=== PATIENT | female | born 1965 | race African-American/Black ===

== ENCOUNTER 2016-12-03 12:47 | Inpatient (IN) | payer OTHER ==
[~2016-12-03] VITALS: Ht 165.1 cm; Wt 83.0 kg
[~2016-12-03 12:47] MED LIST: ABILIFY10 MG PO; ABILIFY15 MG PO; ACTOS15 MG PO; ADULT LOW DOSE81 MG PO; ALTOPREV20 MG PO; AMITRIPTYLINE H25 M2 PO; AMITRIPTYLINE H25 M4; B12INJ PO; BARIATRIC ADVANTAGE; BENTYL 20 MG TA20 M1 PO; BIOTIN2500 MCG PO; CALCIUM AND MA1 EACH PO; CINNAMON; CLONAZEPAM 0.50.5 M1 PO; CLONAZEPAM PO; CLONIDINE PO; COLACE100 MG; COZAAR 50 MG TA50 M2 PO; CRANBERRY400 MG PO; DARVOCET-N 1001 EACH PO; DIPHENOXYLATE/A1 TA1; ELMIRON; ELMIRON PO; ESTRACE1 MG PO; FLONASE 0.05%50 MCG; FUROSEMIDE 40 M40 M1 PO; GLUCOPHAGE500 MG PO; HYDROCODON-ACE1 EAC4 PO; HYDROXYZINE HCL25 M1; HYDROXYZINE HCL25 M2 PO; INDAPAMIDE1.25 MG PO; IRON; KAPVAY0.1 MG PO; KEFLEX500 MG PO; KLONOPIN; KLOR-CON 10 ER10 MEQ PO; LACTASE 3000U T1 TA1; LATUDA120 MG PO; LATUDA20 MG PO; LUNESTA3 MG PO; MACROBID 100 M100 M1 PO; MILK THISTLE500 MG; MULTIVITAMINS; NITROSTAT0.4 MG SL; NORCO 5-325 TA1 EACH PO; OMEGA-3100 MG; OMEPRAZOLE40 MG PO; OXYBUTYNIN 5 MG5 M1 PO; PERCOCET 5-3251 EACH PO; PREDNISONE 20 M20 MG PO; PRILOSEC 20 MG20 MG PO; PROBIOTIC1 EACH PO; PROTONIX40 M2 PO; PROTONIX40 MG PO; TOPAMAX 100 MG100 MG PO; TOPIRAMATE 100100 MG PO; TRAMADOL 50 MG50 MG; TRAMADOL 50 MG50 MG PO; VICODIN 5-5001 EACH PO; VITAMIN D35000 UNI1; VITAMIN E400 UNIT PO; WELLBUTRIN 100100 M1 PO; ZANTAC 150MG T150 MG PO; ZENPEP DR 5,001 EACH PO; ZPAK PO; [UNRECOGNIZED DRUG - OTHER]; [UNRECOGNIZED DRUG - OTHER]; [UNRECOGNIZED DRUG - OTHER] PO
[2016-12-03 12:59] VITALS: BP 120/88
[2016-12-03] MEDS ORDERED: LEVOTHYROXINE 0.1 MG PO (14:10)
[2016-12-03] MEDS ORDERED: CITALOPRAM HBR40 MG PO (14:11)
[2016-12-03] MEDS ORDERED: VISTARIL 25 MG25 M1 PO (14:12)
[2016-12-03 14:20] LABS: ABSOLUTE NEUTROPHILS 8.7 thou/uL (1.4-8.2); BASOPHILS 0.9 % (0.0-2.0); EOSINOPHILS 0.7 % (0.0-3.0); HEMATOCRIT 36.1 % (37.0-47.0); HEMOGLOBIN 11.7 gm/dL (12.0-15.0); LYMPHOCYTES 19.3 % (24.0-44.0); MCHC 32.5 % (28.0-37.0); MCV 92.3 fL (80.0-100.0); MONOCYTES 4.8 % (1.0-8.0); PLATELET COUNT 542 thou/uL (150-400); POLYS 74.3 % (36.0-66.0); RBC 3.91 mil/uL (4.20-5.00); RDW 13.9 % (10.5-14.5); WBC 11.7 thou/uL (4.0-11.0)
[2016-12-03 14:21] LABS: MANUAL DIFF NO
[2016-12-03 14:32] LABS: CALCIUM 8.7 mg/dL (8.5-10.1)
[2016-12-03 14:36] LABS: ALBUMIN 2.7 g/dL (3.4-5.0); DIRECT BILIRUBIN 0.1 mg/dL (<0.1-0.3); TOTAL BILIRUBIN 0.2 mg/dL (<0.1-1.0); TOTAL PROTEIN 7.5 g/dL (6.4-8.2)
[2016-12-03 16:53] VITALS: BP 109/59
[2016-12-03 17:12] VITALS: BP 109/73
[2016-12-03 19:10] VITALS: BP 110/64
[2016-12-04 03:35] VITALS: BP 96/66
[2016-12-04 05:03] LABS: HEMATOCRIT 30.8 % (37.0-47.0); HEMOGLOBIN 10.2 gm/dL (12.0-15.0); MCH 30.6 pg (26.0-34.0); MCHC 33.2 % (28.0-37.0); MCV 92.2 fL (80.0-100.0); RBC 3.34 mil/uL (4.20-5.00); RDW 13.9 % (10.5-14.5); WBC 9.4 thou/uL (4.0-11.0)
[2016-12-04 05:15] LABS: CALCIUM 7.8 mg/dL (8.5-10.1); CREATININE 0.7 mg/dL (0.6-1.3); POTASSIUM 3.3 mmol/L (3.5-5.1)
[2016-12-04 05:18] LABS: ALBUMIN 2.1 g/dL (3.4-5.0); PHOSPHORUS 3.7 mg/dL (2.5-4.9)
[2016-12-04 08:00] VITALS: BP 126/82
[2016-12-04 16:41] VITALS: BP 105/69
[2016-12-04 20:00] VITALS: BP 102/62
[2016-12-05 04:23] VITALS: BP 118/75
[2016-12-05 04:57] LABS: HEMATOCRIT 32.2 % (37.0-47.0); HEMOGLOBIN 10.5 gm/dL (12.0-15.0); MCH 30.8 pg (26.0-34.0); MCHC 32.7 % (28.0-37.0); MCV 94.2 fL (80.0-100.0); RBC 3.41 mil/uL (4.20-5.00); WBC 8.4 thou/uL (4.0-11.0)
[2016-12-05 05:17] LABS: ALBUMIN 2.1 g/dL (3.4-5.0); CALCIUM 8.1 mg/dL (8.5-10.1); CREATININE 0.8 mg/dL (0.6-1.3); PHOSPHORUS 3.3 mg/dL (2.5-4.9); POTASSIUM 3.9 mmol/L (3.5-5.1)
[2016-12-05 08:00] VITALS: BP 108/75
[2016-12-05 16:00] VITALS: BP 130/83
[2016-12-05 19:00] VITALS: BP 119/65
[2016-12-06 03:40] VITALS: BP 116/60
[2016-12-06 05:48] LABS: HEMATOCRIT 31.6 % (37.0-47.0); HEMOGLOBIN 10.3 gm/dL (12.0-15.0); MCH 30.1 pg (26.0-34.0); MCHC 32.5 % (28.0-37.0); MCV 92.6 fL (80.0-100.0); RBC 3.41 mil/uL (4.20-5.00); RDW 13.9 % (10.5-14.5); WBC 8.9 thou/uL (4.0-11.0)
[2016-12-06 06:08] LABS: CALCIUM 7.9 mg/dL (8.5-10.1); CREATININE 0.7 mg/dL (0.6-1.3); PHOSPHORUS 3.1 mg/dL (2.5-4.9); POTASSIUM 3.7 mmol/L (3.5-5.1)
[2016-12-06 08:00] VITALS: BP 115/73
[2016-12-07] MEDS ORDERED: LOSARTAN POTAS100 MG PO (16:50)
[2016-12-07] MEDS ORDERED: HALDOL 0.5 MG0.5 MG PO (16:51)
[2016-12-07] MEDS ORDERED: CARAFATE 1 GM TA1 G1 PO ×2 (18:04→18:05)
[2016-12-07] MEDS ORDERED: OMEPRAZOLE 20 M20 MG PO ×2 (18:04→18:05)
[2016-12-07] MEDS ORDERED: REGLAN 10 MG TA10 MG PO (18:12)
== END 2016-12-06 12:14 | disposition left against medical advice (07) | DRG 390 ==
LOC: ER 12:47 → EROBS 15:41 → 4N 15:41
PROVIDERS: Emergency Medicine; Hospitalist
DX: K56.7 Ileus, unspecified (principal); E87.6 Hypokalemia; K31.84 Gastroparesis; G89.29 Other chronic pain; E11.43 Type 2 diabetes mellitus with diabetic autonomic (poly)neuropathy; I10 Essential (primary) hypertension; D64.9 Anemia, unspecified; D86.9 Sarcoidosis, unspecified; E03.9 Hypothyroidism, unspecified; F17.210 Nicotine dependence, cigarettes, uncomplicated; F31.9 Bipolar disorder, unspecified; Z90.710 Acquired absence of both cervix and uterus; Z90.49 Acquired absence of other specified parts of digestive tract; Z98.890 Other specified postprocedural states; Z95.1 Presence of aortocoronary bypass graft; Z79.899 Other long term (current) drug therapy; Z23 Encounter for immunization
CPT/HCPCS: 10091

== ENCOUNTER 2016-12-07 16:18 | Emergency (ER) | payer OTHER ==
[~2016-12-07] VITALS: Ht 165.1 cm; Wt 83.5 kg
[~2016-12-07 16:18] MED LIST changes: +CITALOPRAM HBR40 MG PO; +LEVOTHYROXINE 0.1 MG PO; +VISTARIL 25 MG25 M1 PO
[2016-12-07] MEDS ORDERED: LOSARTAN POTAS100 MG PO (16:50)
[2016-12-07] MEDS ORDERED: HALDOL 0.5 MG0.5 MG PO (16:51)
[2016-12-07 17:16] LABS: BASOPHILS 1.1 % (0.0-2.0); EOSINOPHILS 0.6 % (0.0-3.0); HEMATOCRIT 35.9 % (37.0-47.0); HEMOGLOBIN 11.6 gm/dL (12.0-15.0); LYMPHOCYTES 16.8 % (24.0-44.0); MCH 30.2 pg (26.0-34.0); MCHC 32.3 % (28.0-37.0); MCV 93.5 fL (80.0-100.0); MONOCYTES 4.4 % (1.0-8.0); PLATELET COUNT 592 thou/uL (150-400); POLYS 77.1 % (36.0-66.0); RBC 3.84 mil/uL (4.20-5.00); RDW 14.3 % (10.5-14.5)
[2016-12-07 17:18] LABS: MANUAL DIFF NO
[2016-12-07 17:19] LABS: URINE BILIRUBIN NEGATIVE (Negative); URINE BLOOD NEGATIVE (Negative); URINE COLOR YELLOW; URINE GLUCOSE-RANDOM* NEGATIVE (Negative); URINE KETONES 1+ (Negative); URINE NITRITE NEGATIVE (Negative); URINE PROTEIN (DIPSTICK) NEGATIVE (Negative); URINE SPECIFIC GRAVITY 1.025 (1.003-1.035); URINE UROBILINOGEN 0.2 E.U./dl (0.2-1.0)
[2016-12-07 17:27] LABS: CALCIUM 9.1 mg/dL (8.5-10.1); CREATININE 0.9 mg/dL (0.6-1.3); POTASSIUM 3.8 mmol/L (3.5-5.1)
[2016-12-07 17:36] LABS: ALBUMIN 2.9 g/dL (3.4-5.0); TOTAL BILIRUBIN 0.3 mg/dL (<0.1-1.0); TOTAL PROTEIN 8.1 g/dL (6.4-8.2)
[2016-12-07] MEDS ORDERED: OMEPRAZOLE 20 M20 MG PO ×2 (18:04→18:05)
[2016-12-07] MEDS ORDERED: CARAFATE 1 GM TA1 G1 PO ×2 (18:04→18:05)
[2016-12-07] MEDS ORDERED: REGLAN 10 MG TA10 MG PO (18:12)
== END 2016-12-07 18:26 | disposition home or self-care (01) ==
LOC: ER 16:18
PROVIDERS: Physician Assistant
DX: K25.9 Gastric ulcer, unspecified as acute or chronic, without hemorrhage or perforation (principal); K31.84 Gastroparesis; K56.7 Ileus, unspecified; E11.9 Type 2 diabetes mellitus without complications; F31.9 Bipolar disorder, unspecified; F41.0 Panic disorder [episodic paroxysmal anxiety]; I10 Essential (primary) hypertension; Z90.710 Acquired absence of both cervix and uterus

== ENCOUNTER 2017-02-22 14:10 | Emergency (ER) | payer OTHER ==
[~2017-02-22] VITALS: Ht 165.1 cm; Wt 81.7 kg
[~2017-02-22 14:10] MED LIST changes: +CARAFATE 1 GM TA1 G1 PO; +HALDOL 0.5 MG0.5 MG PO; +LOSARTAN POTAS100 MG PO; +OMEPRAZOLE 20 M20 MG PO; +REGLAN 10 MG TA10 MG PO
[2017-02-22] MEDS ORDERED: BENZTROPINE MES1 MG PO (14:22)
[2017-02-22] MEDS ORDERED: HYDROCHLOROTHIA25 M2 PO (14:22)
[2017-02-22] MEDS ORDERED: KEFLEX500 MG PO (14:42)
[2017-02-22] MEDS ORDERED: NAPROSYN500 M1 PO (14:42)
[2017-02-22] MEDS ORDERED: PREDNISONE 20 M20 MG PO (14:43)
[2017-02-22] MEDS ORDERED: CLEOCIN HCL150 MG PO (15:02)
[2017-02-22] MEDS ORDERED: NORCO 5-325 TA1 EACH PO (15:08)
== END 2017-02-22 15:34 | disposition home or self-care (01) ==
LOC: ER 14:10
DX: K13.0 Diseases of lips (principal); E11.9 Type 2 diabetes mellitus without complications; I10 Essential (primary) hypertension; D86.0 Sarcoidosis of lung; F31.9 Bipolar disorder, unspecified; Z90.710 Acquired absence of both cervix and uterus; Z87.891 Personal history of nicotine dependence; Z90.49 Acquired absence of other specified parts of digestive tract

== ENCOUNTER 2017-12-15 16:18 | Emergency (ER) | payer OTHER ==
[~2017-12-15] VITALS: Ht 165.1 cm; Wt 99.8 kg
[~2017-12-15 16:18] MED LIST changes: +BENZTROPINE MES1 MG PO; +CLEOCIN HCL150 MG PO; +HYDROCHLOROTHIA25 M2 PO; +NAPROSYN500 M1 PO
[2017-12-15 16:42] LABS: URINE BILIRUBIN NEGATIVE (Negative); URINE BLOOD NEGATIVE (Negative); URINE CLARITY CLEAR; URINE COLOR YELLOW; URINE GLUCOSE-RANDOM* NEGATIVE (Negative); URINE KETONES NEGATIVE (Negative); URINE LEUKOCYTES-REFLEX NEGATIVE (Negative); URINE NITRITE-REFLEX NEGATIVE (Negative); URINE PROTEIN (DIPSTICK) NEGATIVE (Negative); URINE SPECIFIC GRAVITY 1.015 (1.005-1.035); URINE UROBILINOGEN 0.2 E.U./dl (0.2-1.0)
[2017-12-15] MEDS ORDERED: REXULTI0.25 MG PO (16:59)
[2017-12-15 17:17] LABS: ABSOLUTE NEUTROPHILS 2.9 thou/uL (1.4-8.2); BASOPHILS 0.6 % (0.0-2.0); EOSINOPHILS 4.2 % (0.0-3.0); HEMATOCRIT 38.9 % (37.0-47.0); HEMOGLOBIN 13.1 gm/dL (12.0-15.0); LYMPHOCYTES 39.5 % (24.0-44.0); MCH 31.6 pg (26.0-34.0); MCHC 33.7 g/dL (28.0-37.0); PLATELET COUNT 243 thou/uL (150-400); POLYS 46.7 % (36.0-66.0); RBC 4.14 mil/uL (4.20-5.00); RDW 13.3 % (10.5-14.5); WBC 6.2 thou/uL (4.0-11.0)
[2017-12-15 17:25] LABS: CALCIUM 8.6 mg/dL (8.5-10.1); POTASSIUM 3.4 mmol/L (3.5-5.1)
[2017-12-15 17:31] LABS: ALBUMIN 3.5 g/dL (3.4-5.0); TOTAL BILIRUBIN 0.3 mg/dL (<0.1-1.0); TOTAL PROTEIN 7.3 g/dL (6.4-8.2)
[2017-12-15 18:50] VITALS: BP 116/68
== END 2017-12-15 18:51 | disposition left against medical advice (07) ==
LOC: ER 16:18
PROVIDERS: Physician Assistant
DX: K56.600 Partial intestinal obstruction, unspecified as to cause (principal); I10 Essential (primary) hypertension; E11.9 Type 2 diabetes mellitus without complications; F31.9 Bipolar disorder, unspecified; F41.0 Panic disorder [episodic paroxysmal anxiety]; Z87.891 Personal history of nicotine dependence; Z53.21 Procedure and treatment not carried out due to patient leaving prior to being seen by health care provider